=== PATIENT | female | born 1960 | race Caucasian/White ===

== ENCOUNTER 2023-03-17 13:21 | Outpatient (CLI) | payer OTHER, SELFPAY ==
--- NOTE | ~2023-03-17 | XR_ITS ---
XR knee LT 3V 03/17/2023 13:51 Indication: Left knee pain Procedure: 3 views left knee Comparison: No prior studies for comparison. Findings: There is mild osteoarthritis of the left knee. No fracture, subluxation or dislocation. No significant joint effusion. No foreign bodies. Impression: 1: Mild osteoarthritis of the left knee. Reviewed, dictated and finalized at location L. Impression: 1: Mild osteoarthritis of the left knee.
[2023-03-17 18:39] LABS: Hematocrit 42.1 % (37.0-47.0); Hemoglobin 12.6 g/dL (12.0-15.0); Mean Corpuscular HGB Conc 29.9 g/dl (32-36); Mean Corpuscular Hemoglobin 27.6 pg (26-34); Mean Corpuscular Volume 92.1 fl (80-100); Mean Platelet Volume 10.4 fl (7.4-10.4); Platelet Count Result 361 k/mm3 (150-375); Red Blood Count 4.57 M/mm3 (4.2-5.4); Red Cell Distribution Width 15.6 % (11.5-14.5)
[2023-03-17 18:43] LABS: Alanine Aminotransferase 25 U/L (6-35); Albumin Level 4.5 g/dL (3.5-5.1); Alkaline Phosphatase 68 U/L (38-126); Anion Gap 7 mmol/L (8-16); Aspartate Amino Transferase 60 U/L (14-36); Bilirubin,Total 0.5 mg/dL (0.2-1.3); Blood Urea Nitrogen 23 mg/dL (7-17); Carbon Dioxide 33 mmol/L (22-30); Chloride 99 mmol/L (98-107); Cholesterol 218 mg/dL (0-200); Estimated Glomerular Filt Rate 46; Glucose 82 mg/dL (65-110); HDL Direct 63 mg/dL; Potassium 3.8 mmol/L (3.4-5.0); Sodium 139 mmol/L (137-145); Triglycerides 117 mg/dL (<150)
[2023-03-17 18:54] LABS: LDL Cholesterol Direct 109 mg/dL
[2023-03-17 20:14] LABS: Hepatitis C Virus Antibody Negative (Negative)
== END 2023-03-17 13:22 | disposition home or self-care (01) ==
PROVIDERS: PCP Nurse Practitioner Adult Health; Visit Provider Nurse Practitioner Adult Health
DX: M17.12 Unilateral primary osteoarthritis, left knee (principal); Z13.9 Encounter for screening, unspecified
CPT/HCPCS: 36415; 73562; 80053; 80061; 84443; 85027; 86803

== ENCOUNTER 2023-08-05 14:58 | Outpatient (CLI) | payer OTHER, SELFPAY ==
--- NOTE | ~2023-08-05 | MM_ITS ---
EXAMINATION: MM screening laura BI w dale HISTORY: Screening mammogram TECHNIQUE: Craniocaudal and mediolateral oblique 3-D tomosynthesis images were obtained and synthetic 2-D images were generated. CAD analysis was submitted and interpreted. COMPARISON: No prior mammogram is available for comparison at this institution. BREAST PARENCHYMAL COMPOSITION: There are scattered areas of fibroglandular density. FINDINGS: RIGHT BREAST: A mass is present in the middle third of the lower, inner right breast, 7 cm from the n ipple. LEFT BREAST: No suspicious mass, calcification, or architectural distortion are identified to suggest malignancy. IMPRESSION: 1. Right breast mass which may represent the patient's baseline however no comparison is currently av ailable. 2. Comparison with prior mammograms is necessary. BI-RADS Category 0: Incomplete: Needs comparison with prior mammograms. Reviewed, dictated and finalized at location A. CIL TYPIST IMPRESSION: 1. Right breast mass which may represent the patient's baseline however no comp arison is currently available. 2. Comparison with prior mammograms is necessary. BI-RADS Category 0: Incomplete: Needs comparison with prior mammograms.
== END 2023-08-05 14:59 | disposition home or self-care (01) ==
LOC: ANHIMG 15:00
PROVIDERS: PCP Nurse Practitioner Adult Health; Visit Provider Nurse Practitioner Adult Health
DX: Z12.31 Encounter for screening mammogram for malignant neoplasm of breast (principal); R92.8 Other abnormal and inconclusive findings on diagnostic imaging of breast
CPT/HCPCS: 77063; 77067

== ENCOUNTER 2024-03-22 08:15 | Outpatient (CLI) | payer OTHER, SELFPAY ==
[2024-03-22 19:43] LABS: Alanine Aminotransferase 22 U/L (6-35); Albumin Level 4.1 g/dL (3.5-5.1); Alkaline Phosphatase 75 U/L (38-126); Anion Gap 9 mmol/L (4-12); Aspartate Amino Transferase 80 U/L (14-36); Bilirubin,Total 0.3 mg/dL (0.2-1.3); Blood Urea Nitrogen 23 mg/dL (7-17); Calcium 9.5 mg/dL (8.4-10.2); Carbon Dioxide 32 mmol/L (22-30); Chloride 98 mmol/L (98-107); Cholesterol 223 mg/dL (0-200); Estimated Glomerular Filt Rate 46; Glucose 84 mg/dL (65-110); HDL Direct 67 mg/dL; Potassium 4.5 mmol/L (3.4-5.0); Sodium 139 mmol/L (137-145); Triglycerides 100 mg/dL (<150)
[2024-03-22 19:54] LABS: LDL Cholesterol Direct 117 mg/dL
[2024-03-22 20:04] LABS: Vitamin D 25 Hydroxy 78.9 ng/mL
[2024-03-22 20:09] LABS: Hematocrit 44.7 % (37.0-47.0); Hemoglobin 13.5 g/dL (12.0-15.0); Mean Corpuscular HGB Conc 30.2 g/dl (32-36); Mean Corpuscular Hemoglobin 28.8 pg (26-34); Mean Corpuscular Volume 95.3 fl (80-100); Mean Platelet Volume 10.4 fl (7.4-10.4); Platelet Count Result 327 k/mm3 (150-375); Red Blood Count 4.69 M/mm3 (4.2-5.4); Red Cell Distribution Width 15.1 % (11.5-14.5); White Blood Count 6.6 K/mm3 (4.5-10.0)
== END 2024-03-22 08:16 | disposition home or self-care (01) ==
LOC: ANHBWCLAB 08:16
PROVIDERS: PCP Nurse Practitioner Adult Health; Visit Provider Nurse Practitioner Adult Health
DX: E03.9 Hypothyroidism, unspecified (principal); E55.9 Vitamin D deficiency, unspecified; F41.9 Anxiety disorder, unspecified; Z13.9 Encounter for screening, unspecified
CPT/HCPCS: 36415; 80053; 80061; 82306; 84443; 85027

== ENCOUNTER 2024-09-28 07:21 | Outpatient (CLI) | payer OTHER, SELFPAY ==
--- OUTSIDE RECORDS SUMMARY | 2024-09-28 07:25 | XMS_ITS | Encounter Summary ---
Author Organization [facility] Address [address] [place] [address] Care Team Providers Care Tableau Report Developer Name Role Phone Meera Gilliland TYRONE Primary Care Provider [phone] Encounter Details Date Type Department Care Team (Latest Contact Info) Description 06/24/2008 Outpatient Historical HIS [facility] THU Aguirre, MD Osvaldo Other Screening Mammogram Social History Tobacco Use Types Packs/Day Years Used Date Smoking Tobacco: Never Assessed Comments Unknown Sex and Gender Information Value Date Recorded Sex Assigned at Female 07/26/2024 7:58 AM COVER OPERATOR Legal Sex Female 5:08 AM COVER OPERATOR Gender Identity Female 07/26/2024 7:58 AM COVER OPERATOR Sexual Orientation Straight 07/26/2024 7: 58 AM COVER OPERATOR documented as of this encounter Plan of Treatment Not on file documented as of this encounter Procedures Procedure Name Priority Date/Time Associated Diagnosis Comments MAMMO SCREEN BILAT W OR WO CAD Routine 06/24/2008 10:15 AM COVER OPERATOR documented in this encounter Results * MAMMO DIGITAL SCREEN BILAT (06/24/2008 10:15 AM COVER OPERATOR) Anatomical Region Laterality Modality Breast Bilateral Other 06/24/2008 10:1 5 AM COVER OPERATOR Narrative 06/27/2008 10:52 AM COVER OPERATOR [address] [address] Admit Date: 06/24/2008 FRED MAY Sex: F Admit Prov: OSVALDO AGUIRRE Date: 1960 Primary Care Prov: OSVALDO AGUIRRE CMRN: [id number] Room: JAYCOB N: [id number] IMAGING SERVICES Ordering Prov: OSVALDO AGUIRRE Accession Number: [id number] Interpretation BILATERAL SCREENING DIGITAL MAMMOGRAMS WITH COMPUTER ASSISTED DIAGNOSIS, 06/24/2008 Clinical History: Screening mammogram. Findings: Bilateral digital mammogram using CAD technology is compared with previous mammogram of 04/22/2007. Both breasts demonstrate a moderate degree of heterogeneous fibroglandular tissue density. There has been marked regression and near resolution of the cysts previously present in the inferomedial aspect of the right breast, with one tiny residual cyst remaining. There is no evidence of malignant breast mass or radiographic signs of malignancy in either breast. Impression: Interval regression of small cysts from the inferomedial aspect of the right breast, with a solitary tiny cyst remaining. No evidence of malignancy or change otherwise. BI-RADS Category: 2 Assessment BIRADS: 2-Benign finding Recommendation: Normal interval follow-up Dictated by: CULLEN OBRIEN Electronically signed by: CULLEN OBRIEN 06/27/2008 10:52 Transcribed: 06/27/2008 07:54 DKT Procedure Note Cullen Obrien MD - 06/27/2008 [facility] [place] [address], [place] [address] Admit Date: 06/24/2008 FRED MAY Sex: F Admit Prov: OSVALDO AGUIRRE Date: 1960 Primary Care Prov: OSVALDO AGUIRRE CMRN: [id number] Room: JAYCOB N: [id number] IMAGING SERVICES Ordering Prov: OSVALDO AGUIRRE Interpretation BILATERAL SCREENING DIGITAL MAMMOGRAMS WITH COMPUTER ASSISTEDDIAGNOSIS, 06/24/2008 Clinical History: Screening mammogram. Findings: Bilateral digital mammogram using CAD technology iscompared with previous mammogram of 04/22/2007. Both breasts demonstrate a moderatedegree of heterogeneous fibroglandular tissue density. There has beenmarked regression and near resolution of the cysts previously present inthe inferomedial aspect of the right breast, with one tiny residualcyst remaining. There is no evidence of malignant breast mass orradiographic signs of malignancy in either breast. Impression: Interval regression of small cysts from the inferomedial aspect ofthe right breast, with a solitary tiny cyst remaining. No evidence of malignancy or change otherwise. BI-RADS Category: 2 Assessment BIRADS: 2-Benign finding Recommendation: Normal interval follow-up Dictated by: CULLEN OBRIEN Electronically signed by: CULLEN OBRIEN 06/27/2008 10:52 Transcribed: 06/27/2008 07:54 DKT us Osvaldo Aguirre MD MAMMO ORDERABLES Final Resul t documented in this encounter Visit Diagnoses Diagnosis Other screening mammogram documented in this encounter Care Teams Tableau Report Developer Relationship Specialty Start Date End Date Meera Gilliland ANP [address] [address] PCP - General Nurse Practitioner Adult Health 03/03/19 documented as of this encounter
--- OUTSIDE RECORDS SUMMARY | 2024-09-28 07:25 | XMS_ITS | Referral Summary ---
Author Organization [facility] Address [address] [place] [address] Care Team Providers Care Synthetic Gem Press Operator Name Role Phone Meera Gilliland NP Primary Care Provider [phone] Allergies Active Allergy Reactions Criticality Noted Date Comments Clindamycin Doxycycline Erythromycin Hives Medium 04/07/2023 Penicillins Medications venlafaxine 75 mg tablet extended release 24hr 24 hr tablet Take 1 tablet (75 mg total) by mouth daily Active buPROPion XL (WELLBUTRIN XL) 300 mg 24 hr tablet Take 1 tablet (300 mg total) by mouth daily Active cholecalciferol (VITAMIN D-3) 2000 unit capsule 1 capsule (2,000 Units total) Active cyanocobalamin, vitamin B-12, (VITAMIN B-12 ORAL) Take by mouth Active levothyroxine (SYNTHROID) 137 mcg tablet Take 1 tablet (137 mcg total) by mouth corporate relations manager before breakfast Active B lcop-N-bbcvv njio-jcnl15-ugj 30-400-80 unit-mcg-mg tablet Take by mouth Active Active Problems Problem Noted Date Diagnosed Date Encounter for screening colonoscopy 10/31/2020 Overview (10/31/2020): Added automatically from request for surgery [id number] Injury of finger 02/09/2013 Social History Tobacco Use Types Packs/Day Years Used Date Smoking Tobacco: Never Tobacco Cessation:Counseling Given: Not Answered Personal Safety Answer Date Recorded Getting School Help Needed Not on file 02/28 /2024 Comments Unknown Sex and Gender Information Value Date Recorded Sex Assigned at Not on file Legal Sex Female 12:05 PM BUTTON PUNCHER Gender Identity Female 07/23/2021 9:25 AM BUTTON PUNCHER Sexual Orientation Straight 09/01/2020 8: 10 PM BUTTON PUNCHER Last Filed Vital Signs Vital Sign Reading Time Taken Comments Blood Pressure 129/80 12/21/2020 8:30 AM CDT Pulse 77 12/21/2020 8:30 AM CDT Temperature 36.9 C (98.5 F) 12/21/2020 8:30 AM CDT Respiratory Rate 20 12/21/2020 8:30 AM CDT Oxygen Saturation 99% 12/21/2020 8:30 AM CDT Inhaled Oxygen Concentration - - Weight 99.8 kg (220 lb) 05/19/2023 8:04 AM BUTTON PUNCHER Height 172.7 cm (5' 8 ) 05/19/2023 8:04 AM BUTTON PUNCHER Body Mass Index 33.45 05/19/2023 8:04 AM BUTTON PUNCHER Plan of Treatment Not on file Procedures Procedure Name Priority Date/Time Associated Diagnosis Comments COLONOSCOPY 12/21/2020 7:26 AM CDT from Last 3 Months or Most Recently Relevant to Health Maintenance Results * COLONOSCOPY (12/21/2020 7:26 AM CDT) Anatomical Region Laterality Modality Other Narrative Procedure Note Sarthak Orr MD - 12/21/2020 7:26 AM CDT [facility] Patient Name: Nina May Procedure Date: 12/21/2020 7:26 AM Date of : 1960 Admit Type: Outpatient Age: 60 Gender: Female Attending MD: Sarthak Orr M.D. Room: [facility] ENDOSCOPY ROOM 2 Note Status: Finalized Patient Profile: Refer to note in patient chart for documentation of history and physical. Procedure: Colonoscopy Indications: Screening for colorectal malignant neoplasm, Last colonoscopy: 2010 Referring MD: TYRONE Prajapati Providers: Sarthak Orr M.D. Impression: - Hemorrhoids found on perianal exam. - Diverticulosis in the sigmoid colon, in the descending colon and in the transverse colon. - The examination was otherwise normal. - No specimens collected. Recommendation: - Discharge patient to home. - Resume previous diet. - Continue present medications. - Repeat colonoscopy in 10 years for screening purposes. - Return to primary care physician as previously scheduled. Medicines: Propofol per Anesthesia Complications: No immediate complications. Estimated Blood Loss: Estimated blood loss: none. Procedure: Pre-Anesthesia Assessment: - This assessment was completed [Time ofAssessment] prior to the administration of sedation. The benefits, risks and alternatives of theprocedure and sedation were discussed and informed consentwas obtained. All questions were answered. Please referto the signed informed consent document in the medical record. The scope was passed under direct vision.The Colonoscope [id number] was introducedthrough the anus and advanced to the the cecum, identifiedby appendiceal orifice and ileocecal valve. The bowel preparation used was Miralax via single dose instruction. The bowel preparation used wasbisacodyl tablets via single dose instruction. Thecolonoscopy was performed without difficulty. The patient tolerated the procedure well. The quality of thebowel preparation was excellent. Findings: Hemorrhoids were found on perianal exam. Multiple small and large-mouthed diverticula were found in thesigmoid colon, descending colon and transverse colon. The exam was otherwise without abnormality. Electronically signed by Sarthak Orr M.D. Sarthak Orr M.D. 12/21/2020 7:52:05 AM Number of Addenda: 0 Note Initiated On: 12/21/2020 7:26 AM Procedure Code(s): --- Professional --- G0121, Colorectal cancer screening; colonoscopy on individual not meeting criteria for high risk Diagnosis Code(s): --- Professional --- K57.30, Diverticulosis of large intestine without perforation orabscess without bleeding K64.9, Unspecified hemorrhoids Z12.11, Encounter for screening for malignant neoplasm of colon CPT copyright 2019 [employer]. All rights reserved. The codes documented in this report are preliminary and upon print line inspector reviewmay be revised to meet current compliance requirements. Recognized by the [employer] for promoting quality in endoscopy Sarthak Orr MD ENDOSCOPY PROCEDURES Final Re sult from Last 3 Months or Most Recently Relevant to Health Maintenance Insurance [place] [address] [employer]ATE[employer] Advance Directives For more information, please contact: [phone] * Full Code (Latest Code Status on File) Date Activated Date Inactivated Comments 12/21/2020 6:57 AM 12/21/2020 12:41 PM * Full Code Date Activated Date Inactivated Comments 12/21/2020 6:57 AM 12/21/2020 6:57 AM Care Teams Synthetic Gem Press Operator Relationship Specialty Start Date End Date Meera Gilliland NP PCP - General 12/21/20
--- OUTSIDE RECORDS SUMMARY | 2024-09-28 07:25 | XMS_ITS | Clinical Summary ---
Author Organization [facility] Facility Address [address] [place] [address] Care Team Providers Care Teletypewriter Installer Name Role Phone Meera Gilliland TYRONE Primary Care Provider Allergies Active Allergy Reactions Criticality Noted Date Comments Erythromycin Other (see comments) 11/10/2017 Other reaction(s): Unknown Penicillins Hives,Other (see comments) High 08/23/2017 Medications buPROPion XL (WELLBUTRIN XL) 300 MG 24 hr tablet Take 1 tablet by mouth 1 (one) time each day Active cholecalciferol (VITAMIN D-3) 25 MCG (1000 UT) capsule Take 1 capsule by mouth 2 (two) times a day Active levothyroxine (SYNTHROID, LEVOTHROID) 100 MCG tablet 03/17/2021 Active venlafaxine XR (EFFEXOR-XR) 75 MG 24 hr capsule Take 1 capsule by mouth 1 (one) time each day Active Active Problems Problem Noted Date Diagnosed Date Benign essential hypertension 05/01/2021 Chronic kidney disease stage 3B 05/01/2021 Hypothyroidism 05/01/2021 Vitamin D deficiency 05/01/2021 Immunizations Name Administration Dates Next Due Influenza, Quadrivalent, With Preservative 03/25 Tdap 06/22/2012 Family History Medical History Relation Comments Dementia Father Stroke Mother Relation Status Comments Father Mother Social History Tobacco Use Types Packs/Day Years Used Date Smoking Tobacco: Never Alcohol Use Standard Drinks/Week Comments Yes 0 (1 standard drink = 0.6 oz pure alcohol) Alcoholic Drinks/day: Occasional social drink Comments Unknown Sex and Gender Information Value Date Recorded Sex Assigned at Not on file Legal Sex Female 2:53 PM EDT Gender Identity Not on file Sexual Orientation Not on file Last Filed Vital Signs Vital Sign Reading Time Taken Comments Blood Pressure 120/75 01/06/2022 3:19 PM CDT Pulse 110 01/06/2022 3:19 PM CDT Temperature 35.9 C (96.6 F) 01/06/2022 3:19 PM CDT Respiratory Rate 17 01/06/2022 3:19 PM CDT Oxygen Saturation 97% 01/06/2022 3:19 PM CDT Inhaled Oxygen Concentration - - Weight 100 kg (221 lb) 01/06/2022 3:19 PM CDT Height 175.3 cm (5' 9 ) 01/06/2022 3:19 PM CDT Body Mass Index 32.64 01/06/2022 3:19 PM CDT Plan of Treatment Health Maintenance Due Date Last Done Comments Breast Cancer Screening 1960 Pneumococcal Vaccine: Pediatrics (0 to 5 Years) and At-Risk Patients (6 to 64 Years) (1 of 2 - PCV) 11/03/1967 Colorectal Cancer Screening: Annual FOBT 2010 Colorectal Cancer Screening: Sigmoidoscopy 2010 Influenza Vaccine (Season Ended) 2025 03/22/2021, 03/25/2018 Colorectal Cancer Screening: Colonoscopy 12/21/2030 12/21/2020 Hepatitis B Vaccine Aged Out No longe r eligible based on patient's age to complete this topic Insurance [facility] ([id number]) Care Teams Teletypewriter Installer Relationship Specialty Start Date End Date Meera Gilliland ANP [address] [address] PCP - General Nurse Practitioner 05/01/21
--- OUTSIDE RECORDS SUMMARY | 2024-09-28 07:25 | XMS_ITS | Clinical Summary ---
Author Organization [facility] Address [address] [place] [address] Care Team Providers Care Predictive Maintenance Specialist Name Role Phone Meera Gilliland NP Primary Care Provider [phone] Allergies Active Allergy Reactions Criticality Noted Date [...] 1 tablet (137 mcg total) by mouth clinical biochemist before breakfast Active B mqaz-G-lgnyk liyd-pzjn90-evk 30-400-80 unit-mcg-mg tablet Take by mouth Active Active Problems Problem Noted Date Diagnosed Date Encounter for screening colonoscopy 10/31/2020 Overview (10/31/2020): Added automatically from request for surgery [id number] Injury of finger 02/09/2013 Surgical History Surgery Date Site/Laterality Comments COLONOSCOPY 06/22/2010 - 06/21/2011 FINGER SURGERY Right Repair after getting finger caught in lawnmower Medical History Medical History Date Comments Hypothyroidism Social History Tobacco Use Types Packs/Day Years Used Date Smoking Tobacco: Never Tobacco Cessation:Counseling Given: Not Answered Personal Safety Answer Date Recorded Getting School Help Needed Not on file 08/19 Comments Unknown Sex and Gender Information Value Date Recorded Sex Assigned at Not on file Legal Sex Female 12:05 PM YOUTH MANAGER Gender Identity Female 07/23/2021 9:25 AM YOUTH MANAGER Sexual Orientation Straight 09/01/2020 8: 10 PM YOUTH MANAGER Obstetrics History Last Filed Vital Signs Vital Sign Reading Time Taken Comments Blood Pressure 129/80 12/21/2020 8:30 AM CDT Pulse 77 12/21/2020 8:30 AM CDT Temperature 36.9 C (98.5 F) 12/21/2020 8:30 AM CDT Respiratory Rate 20 12/21/2020 8:30 AM CDT Oxygen Saturation 99% 12/21/2020 8:30 AM CDT Inhaled Oxygen Concentration - - Weight 99.8 kg (220 lb) 05/19/2023 8:04 AM YOUTH MANAGER Height 172.7 cm (5' 8 ) 05/19/2023 8:04 AM YOUTH MANAGER Body Mass Index 33.45 05/19/2023 8:04 AM YOUTH MANAGER Plan of Treatment Health Maintenance Due Date Last Done Comments Breast Cancer Screening-Mammogram 1960 Cervical Cancer Screening 1960 Depression Screening 1960 Hepatitis C Screening 1960 Hepatitis B Screening 11/03/1979 Regular Well Visit/Exam 18-64 11/03/1979 Pneumococcal vaccine <65 (1 of 2 - PCV) 1980 Influenza Vaccine (#1) 2024 3, 03/22/2021, 03/25/2018 Colon Cancer Screening-Colonoscopy 12/21/20302020 DTaP/Tdap/Td Vaccine (4 - Td or Tdap) 01/15/2033 01/15/2023, 07/14/2012, 06/22/2012 Zoster Vaccine Completed 09/09/2019, 01/14/2019 Procedures Procedure Name Priority Date/Time Associated Diagnosis Comments COLONOSCOPY 12/21/2020 7:26 AM CDT from Last 3 Months or Most Recently Relevant to Health Maintenance Results * COLONOSCOPY (12/21/2020 7:26 AM CDT) Anatomical Region Laterality Modality Other Narrative Procedure Note Sarthak Orr MD - 12/21/2020 7:26 AM CDT [facility] Patient Name: Nina May Procedure Date: 12/21/2020 7:26 AM Date of : 1960 Admit Type: Outpatient Age: 60 Gender: Female Attending MD: Sarthak Orr M.D. Room: [facility] ENDOSCOPY ROOM 2 Note Status: Finalized Patient [...] scope was passed under direct vision.The Colonoscope CF-[id number] was introducedthrough the anus and advanced to [...] malignant neoplasm of colon CPT copyright 2019 [employer]. All rights reserved. The codes documented in this report are preliminary and upon community youth secretary reviewmay be revised to meet current compliance requirements. Recognized by the [employer] for promoting quality in endoscopy us Sarthak Orr MD ENDOSCOPY PROCEDURES Final Re sult from Last 3 Months or Most Recently Relevant to Health Maintenance Insurance Advance Directives For more information, please contact: [phone] * Full Code (Latest Code Status on File) Date Activated Date Inactivated Comments 12/21/2020 6:57 AM 12/21/2020 12:41 PM * Full Code Date Activated Date Inactivated Comments 12/21/2020 6:57 AM 12/21/2020 6:57 AM Care Teams Predictive Maintenance Specialist Relationship Specialty Start Date End Date Meera Gilliland NP PCP - General 12/21/20
--- OUTSIDE RECORDS SUMMARY | 2024-09-28 07:25 | XMS_ITS | Encounter Summary ---
Author Organization [facility] Address [address] [place] [address] Care Team Providers Care Veterinarian Laboratory Animal Care Name Role Phone Meera Gilliland Primary Care Provider [phone] Encounter Details Date Type Department Care Team (Latest Contact Info) Description 05/25/2007 Outpatient Historical HIS [facility] Devorah Truong MD Lump or Mass in Breast Social History Tobacco Use Types Packs/Day Years Used Date Smoking Tobacco: Never Assessed Comments Unknown Sex and Gender Information Value Date Recorded Sex Assigned at Female 07/26/2024 7:58 AM HOSPITAL AIDE Legal Sex Female 5:08 AM HOSPITAL AIDE Gender Identity Female 07/26/2024 7:58 AM HOSPITAL AIDE Sexual Orientation Straight 07/26/2024 7: 58 AM HOSPITAL AIDE documented as of this encounter Plan of Treatment Not on file documented as of this encounter Visit Diagnoses Diagnosis Lump or mass in breast documented in this encounter Care Teams Veterinarian Laboratory Animal Care Relationship Specialty Start Date End Date Meera Gilliland ANP [address] [id number] PCP - General Nurse Practitioner Adult Health 03/03/19 documented as of this encounter
--- OUTSIDE RECORDS SUMMARY | 2024-09-28 07:25 | XMS_ITS | Clinical Summary ---
Author Organization [facility] [employer] Address [address] [place] [address] Care Team Providers Care Farmworker Rice Name Role Phone Nallelymelanie Meera NICOL Primary Care Provider + Source Comments [facility] [employer],non-owned Affiliates and Associated Physician Practices is amultiple site organization consisting of ambulatory clinics and hospital sitesin [place], [place], [place] and [place]. This disclosure is being madepursuant to the Care Everywhere program and may not contain all information available regarding this patient. Last updated 18.[facility] [employer] Allergies Active Allergy Reactions Criticality Noted Date Comments Erythromycin Unknown 11/10/2017 Penicillins Urticaria Medium 08/23/2017 Medications * Be aware that medications may not be up to date on this document. Alwaysverify current medications with the patient. Medication Sig Dispensed Refills Start Date End Date Status LEVOTHYROXINE SODIUM PO Active BuPROPion HCl (WELLBUTRIN PO) Active Venlafaxine HCl (EFFEXOR XR PO) Active nystatin (MYCOSTATIN) 790471 UNIT/GM cream Apply to affected area 2 times daily 30 g 1 11/10/2017 Active miconazole (LOTRIMIN AF) 2 % powderIndications:Cu taneous Candidiasis Apply to affected area 2 times daily Reasons: Skin Infection due to Jacquie Yeast 1 bottles 11/20/2017 Active predniSONE (DELTASONE) 20 MG tabletIndications:co ntact dermatitis Three tabs once daily days #1-7. Two tabs once daily days # 8-14. One tab once daily days #15-21. Reasons: contact dermatitis 42 tablet 11/20/2017 Active hydrOXYzine hcl (ATARAX) 25 MG tabletIndications:Po jr sudha,Jacquie infection of flexural skin Take 1 tablet by mouth 4 times daily as needed for Itching 30 tablet 11/20/2017 Active Social History Tobacco Use Types Packs/Day Years Used Date Smoking Tobacco: Never Smokeless Tobacco: Never Sex and Gender Information Value Date Recorded Sex Assigned at Not on file Gender Identity Not on file Sexual Orientation Not on file Last Filed Vital Signs Vital Sign Reading Time Taken Comments Blood Pressure 120/64 11/10/2017 5:12 PM CDT Pulse 76 11/20/2017 7:43 AM CDT Temperature 36.9 C (98.4 F) 11/20/2017 7:43 AM CDT Respiratory Rate 20 11/20/2017 7:43 AM CDT Oxygen Saturation 96% 08/23/2017 2:41 PM ELECTRICAL INSTRUMENT TECHNICIAN Inhaled Oxygen Concentration - - Weight 99.8 kg (220 lb) 11/10/2017 5:12 PM CDT Height 175.3 cm (5' 9 ) 11/10/2017 5:12 PM CDT Body Mass Index 32.49 11/10/2017 5:12 PM CDT Plan of Treatment Health Maintenance Due Date Last Done Comments COLOGUARD (AGES 45-75) - COL ON CA SCREENING 1961 COLON MONITORING 1961 COLONOSCOPY - COLON CA SCREENING 1961 CT COLONOGRAPHY - COLON CA SCREENING 1961 Colorectal Cancer Screening 1961 FIT - COLON CA SCREENING 1961 FLEX SIG - COLON CA SCREENING 1961 LIPID TESTING 1960 MAMMOGRAM 1961 HIV SCREENING 1976 HEPATITIS C SCREENING 10/29/1979 DTAP/TDAP/TD VACCINES (1 - Tdap) 1980 PNEUMOCOCCAL VACCINE 50+ (1 of 1 - PCV) 11/03/2011 ZOSTER VACCINE (1 of 2) 11/03/2011 SCREENING FOR DIABETES 08/23/2017 COVID-19 VACCINE ( - 2023-2 5 season) 2024 DEPRESSION SCREENING 06/22/2024 INFLUENZA VACCINE (Season Ended) 2025 03/25/20 18 Respiratory Syncytial Virus (RSV) Vaccine Pt: or over 60 yrs (1 - 1-dose 75+ series) 2036 HEPATITIS B VACCINE Aged Out No longe r eligible based on patient's age to complete this topic HIB VACCINE Aged Out No longer eligi ble based on patient's age to complete this topic HPV VACCINE Aged Out No longer eligi ble based on patient's age to complete this topic MENINGOCOCCAL (Group B) VACC INE SHARED DECISION-MAKING Aged Out No longer eligibl e based on patient's age to complete this topic MENINGOCOCCAL GROUPS A/C/Y/W VACCINE Aged Out No longer eligible b ased on patient's age to complete this topic Care Teams Farmworker Rice Relationship Specialty Start Date End Date Meera Gilliland APRN-WHEELCHAIR VAN OPERATOR FIRST RESPONDER [address] [address] PCP - General Nurse Practitioner 08/23/17
--- OUTSIDE RECORDS SUMMARY | 2024-09-28 07:25 | XMS_ITS | Clinical Summary ---
Author Organization [facility] [employer] [place] Address [address] [place] [place] [address] Care Team Providers Care Fire Management Officer Name Role Phone Meera Gilliland Primary Care Provider [phone] Allergies Active Allergy Reactions Criticality Noted Date Comments Erythromycin Hives High 11/10/2017 Penicillins Hives High 08/23/2017 Medications vitamin B complex Tablet Sustained Release Take 1 Tablet by mouth daily. Active cholecalciferol , vitamin D3, 1,000 unit Take by mouth. Active black cohosh root (MENOPAUSE SUPPORT ORAL) Take by mouth. Active levothyroxine 125 mcg tablet Take 125 mcg by mouth daily in the morning. Active cyanocobalamin, vitamin B-12, 2,000 mcg Tablet Take by mouth. Active nystatin (NYSTOP) 100,000 unit/gram powder 04/15/2023 Active buPROPion HCL (WELLBUTRIN XL) 300 mg Extended Release 24 hour tablet Take 1 Tablet (300 mg) by mouth daily in the morning. 90 Tablet 3 08/18/2024 Active venlafaxine (EFFEXOR XR) 150 mg Extended Release 24 hour capsule Take 1 Capsule (150 mg) by mouth daily. 90 Capsule 3 08/18/2024 Active Active Problems Problem Noted Date Diagnosed Date Stage 3a chronic kidney disease 01/15/2023 Hypothyroidism 05/01/2021 Depression Encounters Date Type Department Care Team Description 08/29/2024 External Device Data STL ABSTRACTION Provider, Abstract 08/23/2024 External Device Data STL ABSTRACTION Provider, Abstract 08/19/2024 Results Follow-Up [facility] [place] [address] [place] [address] Rhona Jha DNP LIPID PANEL, COMPREHENSIVE METABOLIC PANEL, CBC WITH DIFFERENTIAL, TSH 08/18/2024 10:30 AM CUTTING MACHINE OPERATOR Office Visit [facility] [employer] [place] [address] [place] [address] Rhona Jha DNP Screening for condition (Primary Dx) 08/15/2024 Refill [facility] [employer] [facility] [address] [place] [address] Rhona Jha DNP 08/10/2024 External Device Data STL ABSTRACTION Provider, Abstract 07/14/2024 External Device Data STL ABSTRACTION Provider, Abstract 07/05/2024 External Device Data STL ABSTRACTION Provider, Abstract from Last 3 Months Immunizations Immunization Administration Dates Next Due (ADACEL/BOOSTRIX)(10 YR UP) TDAP VACCINE, 0.5ML, IM 01/15/2023,06/22/2012 (SHINGRIX)(50 YRS UP) ZOSTER VACCINE RECOMBINANT, 0.5 ML, IM 09/09/2019,01/14/2019 INFLUENZA VACCINE QUADRIVALENT 6 MOS UP IM 03/25 INFLUENZA VACCINE QUADRIVALENT 6 MOS UP PF IM ,03/22/2021 INFLUENZA VACCINE TRIVALENT SPLIT VIRUS, (6 MOS UP), 0.5ML (PF), IM 03/23/2024 Family History Medical History Relation Name Comments Cancer Brother No Known Problems Daughter 1 No Known Problems Daughter 2 Dementia Father Unknown Maternal Grandfather Unknown Maternal Grandmother Blood Disorder Mother Stroke Mother Unknown Paternal Grandfather Unknown Paternal Grandmother No Known Problems Sister Relation Name Status Comments Brother Alive Daughter 1 Alive Daughter 2 Alive Father Alive Maternal Grandfather Maternal Grandmother Mother Paternal Grandfather Paternal Grandmother Sister Alive Social History Tobacco Use Types Packs/Day Years Used Date Smoking Tobacco: Never Smokeless Tobacco: Never Alcohol Use Standard Drinks/Week Comments Yes 0 (1 standard drink = 0.6 oz pur e alcohol) Social Comments No Sex and Gender Information Value Date Recorded Sex Assigned at Female 07/26/2024 7:58 AM CUTTING MACHINE OPERATOR Legal Sex Female 5:08 AM CUTTING MACHINE OPERATOR Gender Identity Female 07/26/2024 7:58 AM CUTTING MACHINE OPERATOR Sexual Orientation Straight 07/26/2024 7: 58 AM CUTTING MACHINE OPERATOR Last Filed Vital Signs Vital Sign Reading Time Taken Comments Blood Pressure 130/80 08/18/2024 10:24 AM CUTTING MACHINE OPERATOR Pulse 101 08/18/2024 10:24 AM CUTTING MACHINE OPERATOR Temperature 36.9 C (98.4 F) 08/18/2024 10:24 AM CUTTING MACHINE OPERATOR Respiratory Rate 16 08/18/2024 10:24 AM CUTTING MACHINE OPERATOR Oxygen Saturation 97% 08/18/2024 10:24 AM CUTTING MACHINE OPERATOR Inhaled Oxygen Concentration - - Weight 95.3 kg (210 lb) 08/18/2024 10:24 AM CUTTING MACHINE OPERATOR Height 172.7 cm (5' 8 ) 08/18/2024 10:24 AM CUTTING MACHINE OPERATOR Body Mass Index 31.93 08/18/2024 10:24 AM CUTTING MACHINE OPERATOR Plan of Treatment Health Maintenance Due Date Last Done Comments Pre-Diabetes and Diabetes Screening 1960 HPV/Cotest (21-29) 1982 PAP SMEAR 1982 HPV/Cotest (30-65) 11/03/1991 FIT-DNA Q 3 years 2006 FIT/FOBT Q 1 year 2006 Flex Sig/CT Colonography Q 5 years 2006 BREAST CANCER SCREENING 06/24/2009 06/24/2008 RSV VACCINE (60+ or ) (1 - Risk 60-74 years 1-dose series) 2021 CERVICAL CANCER SCREENING 11/29/2023 PAP SMEAR 11/29/2023 11/28/2020 (Prev iously completed), 06/22/2016 COLORECTAL SCREENING 12/21/2030 12/21/2020, 12/21/2020, 12/21/2020, Additional history exists Colorectal Cancer Screening 12/21/2030 DTAP/TDAP/TD VACCINES (3 - T d or Tdap) 01/15/2033 01/15/2023, 06/22/2012 ZOSTER VACCINE Completed 09/09/2019, 01/14/2019 INFLUENZA VACCINE Completed 03/23/2024, , 03/22/2021, Additional history exists Procedures Procedure Name Priority Date/Time Associated Diagnosis Comments CBC WITH DIFFERENTIAL Routine 08/18/2024 10:53 AM CUTTING MACHINE OPERATOR Screening for condition COMPREHENSIVE METABOLIC PANEL Routine 08/18/2024 10:53 AM CUTTING MACHINE OPERATOR Screening for condition LIPID PANEL Routine 08/18/2024 10:53 AM CUTTING MACHINE OPERATOR Screening for condition TSH Routine 08/18/2024 10:53 AM CUTTING MACHINE OPERATOR Screening for condition COLONOSCOPY REPORT Routine 12/21/2020 MAMMO SCREEN BILAT W OR WO CAD Routine 06/24/2008 10:15 AM CUTTING MACHINE OPERATOR from Last 3 Months or Most Recently Relevant to Health Maintenance Results * CBC WITH DIFFERENTIAL (08/18/2024 10:53 AM CUTTING MACHINE OPERATOR) WBC 7.8 3.8 - 10.8 Thousand/u L [facility] RBC 4.58 3.80 - 5.10 Million/uL [facility] HEMOGLOBIN 13.1 11.7 - 15.5 g/dL [facility] HEMATOCRIT 40.0 35.0 - 45.0 % [facility] MCV 87.3 80.0 - 100.0 fL [facility] MCH 28.6 27.0 - 33.0 pg [facility] MCHC 32.8 32.0 - 36.0 g/dL [facility] Comment: For adults, a slight decrease in the calculated MCHC value (in the range of 30 to 32 g/dL) is most likely not clinically significant; however, it should be interpreted with caution in correlation with other red cell parameters and the patient's clinical condition. RDW 13.5 11.0 - 15.0 % [facility] PLATELETS 386 140 - 400 Thousand/u L [facility] MPV 10.6 7.5 - 12.5 fL [facility] NEUTROPHIL ABSOLUTE 4,922 1,500 - 7,800 cells/uL [facility] LYMPHOCYTE ABSOLUTE 2,215 850 - 3,900 cells/uL [facility] MONOCYTE ABSOLUTE 515 200 - 950 cells/uL [facility] EOSINOPHIL ABSOLUTE 117 15 - 500 cells/uL [facility] BASOPHILS ABSOLUTE 31 0 - 200 cells/uL [facility] NEUTROPHIL 63.1 % [facility] LYMPHOCYTES 28.4 % [facility] MONOCYTE 6.6 % [facility] EOSINOPHILS 1.5 % [facility] BASOPHILS 0.4 % [facility] Comment: Test Performed at: [facility] [address] [place] [address] Mohinder Melchor MD Blood 08/18/2024 10:5 3 AM CUTTING MACHINE OPERATOR 08/19/2024 5:39 AM CUTTING MACHINE OPERATOR [facility] HEMATOLOGY ORDERABLES Final Re sult Performing Organization Address City/[facility]/ZIP Co de Phone Number [facility] [phone] [facility] [address] * TSH (08/18/2024 10:53 AM CUTTING MACHINE OPERATOR) Pathologist [facility] TSH 2.37 0.40 - 4.50 mIU/L [facility] Comment: Test Performed at: [facility] [address] AmandaFidelia Melchor MD Blood 08/18/2024 10:5 3 AM CUTTING MACHINE OPERATOR 08/19/2024 5:39 AM CUTTING MACHINE OPERATOR [facility] CHEMISTRY ORDERABLES Final Res ult Performing Organization Address City/[facility]/ZIP Co de Phone Number [facility] [phone] [facility] [address] * (ABNORMAL) LIPID PANEL (08/18/2024 10:53 AM CUTTING MACHINE OPERATOR) CHOLESTEROL 202(H) <200 mg/dL [facility] HDL 60 > OR = 50 mg/dL [facility] TRIGLYCERIDE 105 <150 mg/dL [facility] LDL CALCULATED 121(H) mg/dL (calc) [facility] Comment: Reference range: <100 Desirable range <100 mg/dL for primary prevention; <70 mg/dL for patients with CHD or diabetic patients with > or = 2 CHD risk factors. LDL-C is now calculated using the Edison calculation, which is a validated novel method providing better accuracy than the Friedewald equation in the estimation of LDL-C. Joshua HERNANDEZ et al. EDIS. 2013;310(19): 7475-8176 (http://education.Memolane/faq/QTI847) CHOL/HDL RATIO 3.4 <5.0 (calc) [facility] NON-HDL CHOLESTEROL 142(H) <130 mg/dL (calc) [facility] Comment: For patients with diabetes plus 1 major ASCVD risk factor, treating to a non-HDL-C goal of <100 mg/dL (LDL-C of <70 mg/dL) is considered a therapeutic option. Test Performed at: [email or web address] [id number] [place] [address] Mohinder Melchor MD Blood 08/18/2024 10:5 3 AM CUTTING MACHINE OPERATOR 08/19/2024 5:39 AM CUTTING MACHINE OPERATOR Rhona Jha [facility] CHEMISTRY ORDERABLES Final Res ult [facility] [phone] [email or web address] [address] [place] [address] * (ABNORMAL) COMPREHENSIVE METABOLIC PANEL (08/18/2024 10:53 AM CUTTING MACHINE OPERATOR) GLUCOSE 74 65 - 99 mg/dL [facility] Comment: Fasting reference interval BUN 29(H) 7 - 25 mg/dL [facility] CREATININE 1.18(H) 0.50 - 1.05 mg/dL [facility] GFR 52(L) > OR = 60 mL/min/1.7 3m2 [facility] BUN/CREAT RATIO 25(H) 6 - 22 (calc) [facility] SODIUM 141 135 - 146 mmol/L [facility] POTASSIUM 4.4 3.5 - 5.3 mmol/L [facility] CHLORIDE 101 98 - 110 mmol/L [facility] CO2 30 20 - 32 mmol/L [facility] CALCIUM 9.9 8.6 - 10.4 mg/dL [facility] TOTAL PROTEIN 7.0 6.1 - 8.1 g/dL [facility] ALBUMIN 4.2 3.6 - 5.1 g/dL [facility] GLOBULIN 2.8 1.9 - 3.7 g/dL (calc) [facility] ALBUMIN/GLOBULIN RATIO 1.5 1.0 - 2.5 (calc) [facility] BILIRUBIN TOTAL 0.4 0.2 - 1.2 mg/dL [facility] ALKALINE PHOSPHATASE 67 37 - 153 U/L [facility] AST 25 10 - 35 U/L [facility] ALT 25 6 - 29 U/L [facility] Comment: Test Performed at: [facility] [address] [place] [address] Mohinder Melchor MD Blood 08/18/2024 10:5 3 AM CUTTING MACHINE OPERATOR 08/19/2024 5:39 AM CUTTING MACHINE OPERATOR us Rhona Jha DNP CHEMISTRY ORDERABLES Final Res ult [facility] [phone] [facility] [address] [place] [address] * COLONOSCOPY REPORT (12/21/2020) us Abstract Provider GI PROCEDURE ORDERABLES Final Result [facility] CLIA# [id number] [address] [place] [address] * MAMMO DIGITAL SCREEN BILAT (06/24/2008 10:15 AM CUTTING MACHINE OPERATOR) Anatomical Region Laterality Modality Breast Bilateral Other 06/24/2008 10:1 5 AM CUTTING MACHINE OPERATOR Narrative 06/27/2008 10:52 AM CUTTING MACHINE OPERATOR [facility] [address] [place], [place] [address] Admit Date: 06/24/2008 NINA MAY Sex: F Admit Prov: OSVALDO DONIS Date: 1960 Primary Care Prov: OSVALDO DONIS CMRN: [id number] [facility]: [id number] IMAGING SERVICES Ordering Prov: OSVALDO DONIS Accession Number: [id number] Interpretation BILATERAL SCREENING DIGITAL MAMMOGRAMS WITH COMPUTER [...] Procedure Note Cullen Obrien MD - 06/27/2008 [place] [id number] [place], [place] [address] Admit Date: 06/24/2008 NINA MAY Sex: F Admit Prov: OSVALDO DONIS Date: 1960 Primary Care Prov: OSVALDO DONIS CMRN: [id number] Room: [facility] N: [id number] IMAGING SERVICES Ordering Prov: OSVALDO DONIS Interpretation BILATERAL SCREENING DIGITAL MAMMOGRAMS WITH COMPUTER [...] OBRIEN 06/27/2008 10:52 Transcribed: 06/27/2008 07:54 DKT Osvaldo Donis MD MAMMO ORDERABLES Final Resul t from Last 3 Months or Most Recently Relevant to Health Maintenance Insurance ALLEGIANCE OPEN ACCESS ALLEGIANCE OPEN ACCESS * Guarantor: [employer] Account Type Relation to Patient Date of Phone Billing Address Corporate Employer ATTN: GEOVANNY [employer]HERFORD [address] [address] Care Teams Fire Management Officer Relationship Specialty Start Date End Date Meera Gilliland ANP [address] [address] PCP - General Nurse Practitioner Adult Health 03/03/19
--- OUTSIDE RECORDS SUMMARY | 2024-09-28 07:25 | XMS_ITS | Encounter Summary ---
Author Organization [facility] Address [address] [place] [address] Care Team Providers Care Senior Pricing Analyst Name Role Phone Meera Gilliland Primary Care Provider [phone] Encounter Details Date Type Department Care Team (Late st Contact Info) Description 04/23/2007 Outpatient Historical [facility] Devorah Krause MD Other Screening Mammogram (Primary Dx) Social History Tobacco Use Types Packs/Day Years Used Date Smoking Tobacco: Never Assessed Comments Unknown Sex and Gender Information Value Date Recorded Sex Assigned at Female 07/26/2024 7:58 AM AGENTS' RECORDS CLERK Legal Sex Female 5:08 AM AGENTS' RECORDS CLERK Gender Identity Female 07/26/2024 7:58 AM AGENTS' RECORDS CLERK Sexual Orientation Straight 07/26/2024 7: 58 AM AGENTS' RECORDS CLERK documented as of this encounter Plan of Treatment Not on file documented as of this encounter Visit Diagnoses Diagnosis Other screening mammogram- Primary documented in this encounter Care Teams Senior Pricing Analyst Relationship Specialty Start Date End Date Meera Gilliland ANP [address] [phone] PCP - General Nurse Practitioner Adult Health 03/03/19 documented as of this encounter
[2024-09-28 19:02] LABS: Hematocrit 44.1 % (37.0-47.0); Hemoglobin 13.3 g/dL (12.0-15.0); Mean Corpuscular HGB Conc 30.2 g/dl (32-36); Mean Corpuscular Volume 92.8 fl (80-100); Mean Platelet Volume 10.4 fl (7.4-10.4); Platelet Count Result 322 k/mm3 (150-375); Red Blood Count 4.75 M/mm3 (4.2-5.4); Red Cell Distribution Width 15.1 % (11.5-14.5); White Blood Count 6.2 K/mm3 (4.5-10.0)
[2024-09-28 19:45] LABS: Alanine Aminotransferase 33 U/L (6-35); Albumin Level 4.3 g/dL (3.5-5.1); Alkaline Phosphatase 79 U/L (38-126); Anion Gap 9 mmol/L (4-12); Aspartate Amino Transferase 83 U/L (14-36); Bilirubin,Total 0.4 mg/dL (0.2-1.3); Blood Urea Nitrogen 34 mg/dL (7-17); Calcium 9.5 mg/dL (8.4-10.2); Carbon Dioxide 31 mmol/L (22-30); Chloride 101 mmol/L (98-107); Cholesterol 219 mg/dL (0-200); Estimated Glomerular Filt Rate 49; Glucose 90 mg/dL (65-110); HDL Direct 62 mg/dL; Potassium 4.4 mmol/L (3.4-5.0); Sodium 141 mmol/L (137-145); Triglycerides 81 mg/dL (<150)
[2024-09-28 19:56] LABS: LDL Cholesterol Direct 119 mg/dL
[2024-09-28 21:01] LABS: Vitamin D 25 Hydroxy 67.3 ng/mL
== END 2024-09-28 07:22 | disposition home or self-care (01) ==
LOC: ANHBWCLAB 07:22
PROVIDERS: PCP Nurse Practitioner Adult Health; Visit Provider Nurse Practitioner Adult Health
DX: Z13.9 Encounter for screening, unspecified (principal); E55.9 Vitamin D deficiency, unspecified; E03.9 Hypothyroidism, unspecified
CPT/HCPCS: 36415; 80053; 80061; 82306; 84443; 85027

== ENCOUNTER 2024-11-18 15:16 | Outpatient (CLI) | payer OTHER, SELFPAY ==
--- NOTE | ~2024-11-18 | MM_ITS ---
EXAMINATION: MM screening laura BI w [facility] HISTORY: Screening TECHNIQUE: Craniocaudal and mediolateral oblique 3-D tomosynthesis images were obtained and synthetic 2-D images were generated. CAD analysis was submitted and interpreted. COMPARISON: Comparison to multiple prior studies sequentially, with oldest reviewed study dated 12/2015. BREAST PARENCHYMAL COMPOSITION: Not dense: There are scattered areas of fibroglandular density. FINDINGS: There is no evidence of suspicious mass, calcification, or architectural distortion to sugg est malignancy in either breast. There has been no suspicious interval change. IMPRESSION: 1. No mammographic evidence of malignancy. 2. Recommend routine screening mammography in one year. BI-RADS Category 1: Negative Reviewed, dictated and finalized at location A.
--- OUTSIDE RECORDS SUMMARY | 2024-11-18 15:20 | XMS_ITS | Encounter Summary ---
Author Organization [facility] Address [address] [place] [address] Care Team Providers Care Post Graduate Intern Name Role Phone Meera Gilliland Primary Care Provider [phone] Encounter Details Date Type Department Care Team (Latest Contact Info) Description 05/25/2007 Outpatient Historical HIS [facility] Devorah Truong MD Lump or Mass in Breast Social History Tobacco Use Types Packs/Day Years Used Date Smoking Tobacco: Never Assessed Comments Unknown Sex and Gender Information Value Date Recorded Sex Assigned at Female 07/26/2024 7:58 AM CROSSTIE INSPECTOR Legal Sex Female 5:08 AM CROSSTIE INSPECTOR Gender Identity Female 07/26/2024 7:58 AM CROSSTIE INSPECTOR Sexual Orientation Straight 07/26/2024 7: 58 AM CROSSTIE INSPECTOR documented as of this encounter Plan of Treatment Not on file documented as of this encounter Visit Diagnoses Diagnosis Lump or mass in breast documented in this encounter Care Teams Post Graduate Intern Relationship Specialty Start Date End Date Meera Gilliland ANP [address] [phone] PCP - General Nurse Practitioner Adult Health 03/03/19 documented as of this encounter
--- OUTSIDE RECORDS SUMMARY | 2024-11-18 15:20 | XMS_ITS | Encounter Summary ---
Author Organization [facility] Address [address] [place] [address] Care Team Providers Care Instructional Facilitator Name Role Phone Meera Gilliland TYRONE Primary Care Provider [phone] Encounter Details Date Type Department Care Team (Latest Contact Info) Description 06/24/2008 Outpatient Historical HIS [facility] THU Aguirre, MD Osvaldo Other Screening Mammogram Social History Tobacco Use Types Packs/Day Years Used Date Smoking Tobacco: Never Assessed Comments Unknown Sex and Gender Information Value Date Recorded Sex Assigned at Female 07/26/2024 7:58 AM SHEET METAL PRODUCTION WORKER Legal Sex Female 5:08 AM SHEET METAL PRODUCTION WORKER Gender Identity Female 07/26/2024 7:58 AM SHEET METAL PRODUCTION WORKER Sexual Orientation Straight 07/26/2024 7: 58 AM SHEET METAL PRODUCTION WORKER documented as of this encounter Plan of Treatment Not on file documented as of this encounter Procedures Procedure Name Priority Date/Time Associated Diagnosis Comments MAMMO SCREEN BILAT W OR WO CAD Routine 06/24/2008 10:15 AM SHEET METAL PRODUCTION WORKER documented in this encounter Results * MAMMO DIGITAL SCREEN BILAT (06/24/2008 10:15 AM SHEET METAL PRODUCTION WORKER) Anatomical Region Laterality Modality Breast Bilateral Other 06/24/2008 10:1 5 AM SHEET METAL PRODUCTION WORKER Narrative 06/27/2008 10:52 AM SHEET METAL PRODUCTION WORKER [address] [address] Admit Date: 06/24/2008 FRED MAY Sex: F Admit Prov: OSVALDO AGUIRRE Date: 1960 Primary Care Prov: OSVALDO AGUIRRE CMRN: [id number] Room: [facility] N: [id number] IMAGING SERVICES Ordering Prov: OSVALDO AGUIRRE Accession Number: [id number] Interpretation BILATERAL SCREENING DIGITAL MAMMOGRAMS WITH COMPUTER [...] Procedure Note Cullen Obrien MD - 06/27/2008 [facility] [address] [place], [place] [address] Admit Date: 06/24/2008 FRED MAY Sex: F Admit Prov: OSVALDO AGUIRRE Date: 1960 Primary Care Prov: OSVALDO AGUIRRE CMRN: [id number] Room: [facility] N: [id number] IMAGING SERVICES Ordering Prov: OSVALDO AGUIRRE Interpretation [...] mammogram documented in this encounter Care Teams Instructional Facilitator Relationship Specialty Start Date End Date Meera Gilliland ANP [address] [address] PCP - General Nurse Practitioner Adult Health 03/03/19 documented as of this encounter
--- OUTSIDE RECORDS SUMMARY | 2024-11-18 15:20 | XMS_ITS | Encounter Summary ---
Author Organization [facility] Address [address] [place] [address] Care Team Providers Care Inspector Electromechanical Name Role Phone Meera Gilliland Primary Care Provider [phone] Encounter Details Date Type Department Care Team (Late st Contact Info) Description 04/23/2007 Outpatient Historical [facility] Devorah Krause MD Other Screening Mammogram (Primary Dx) Social History Tobacco Use Types Packs/Day Years Used Date Smoking Tobacco: Never Assessed Comments Unknown Sex and Gender Information Value Date Recorded Sex Assigned at Female 07/26/2024 7:58 AM GAS DISTRIBUTION AND EMERGENCY CLERK Legal Sex Female 5:08 AM GAS DISTRIBUTION AND EMERGENCY CLERK Gender Identity Female 07/26/2024 7:58 AM GAS DISTRIBUTION AND EMERGENCY CLERK Sexual Orientation Straight 07/26/2024 7: 58 AM GAS DISTRIBUTION AND EMERGENCY CLERK documented as of this encounter Plan of Treatment Not on file documented as of this encounter Visit Diagnoses Diagnosis Other screening mammogram- Primary documented in this encounter Care Teams Inspector Electromechanical Relationship Specialty Start Date End Date Meera Gilliland ANP [address] [phone] PCP - General Nurse Practitioner Adult Health 03/03/19 documented as of this encounter
--- OUTSIDE RECORDS SUMMARY | 2024-11-18 15:20 | XMS_ITS | Clinical Summary ---
Author Organization [facility] Facility Address [address] [place] [address] Care Team Providers Care Jockey Agent Name Role Phone Meera Gilliland TYRONE Primary Care Provider [phone] Allergies Active Allergy Reactions Criticality Noted Date [...] Hypothyroidism 05/01/2021 Vitamin D deficiency 05/01/2021 Immunizations Immunization Administration Dates Next Due Influenza, Quadrivalent, With [...] 3:19 PM CDT Height 175.3 cm (5' 9) 01/06/2022 3:19 PM CDT Body Mass Index 32.64 01/06/2022 3:19 PM CDT Plan of Treatment Health Maintenance Due Date Last Done Comments Breast Cancer Screening 1961 Pneumococcal Vaccine: 50+ Years (1 of 2 - PCV) 1980 Colorectal Cancer Screening: Annual FOBT 2010 Colorectal Cancer Screening: Sigmoidoscopy 2010 Influenza Vaccine (Season Ended) 2025 03/22/2021, 03/25/2018 Colorectal Cancer Screening: Colonoscopy 12/21/2030 12/21/2020 Hepatitis B Vaccine Aged Out No longe r eligible based on patient's age to complete this topic Insurance ([id number]) Care Teams Jockey Agent Relationship Specialty Start Date End Date Meera Gilliland ANP [address] [id number] PCP - General Nurse Practitioner 05/01/21
--- OUTSIDE RECORDS SUMMARY | 2024-11-18 15:20 | XMS_ITS | Clinical Summary ---
Author Organization [facility] Address [address] [place] [address] Care Team Providers Care Donation Worker Name Role Phone Meera Gilliland NP Primary Care Provider [phone] Allergies Active Allergy Reactions Criticality Noted Date [...] 1 tablet (137 mcg total) by mouth risk management manager before breakfast Active B emvj-Y-yamhu hwef-[id number] 30-400-80 unit-mcg-mg tablet Take by mouth Active Active Problems Problem Noted Date Diagnosed Date Encounter for screening colonoscopy 10/31/2020 Overview (10/31/2020): Added automatically from request for surgery [id number] Injury of finger 02/09/2013 Surgical History Surgery [...] on file Legal Sex Female 12:05 PM BUMBOATER Gender Identity Female 07/23/2021 9:25 AM BUMBOATER Sexual Orientation Straight 09/01/2020 8: 10 PM BUMBOATER Obstetrics History Last Filed Vital Signs Vital Sign Reading Time Taken Comments Blood Pressure 129/80 12/21/2020 8:30 AM CDT Pulse 77 12/21/2020 8:30 AM CDT Temperature 36.9 C (98.5 F) 12/21/2020 8:30 AM CDT Respiratory Rate 20 12/21/2020 8:30 AM CDT Oxygen Saturation 99% 12/21/2020 8:30 AM CDT Inhaled Oxygen Concentration - - Weight 99.8 kg (220 lb) 05/19/2023 8:04 AM BUMBOATER Height 172.7 cm (5' 8) 05/19/2023 8:04 AM BUMBOATER Body Mass Index 33.45 05/19/2023 8:04 AM BUMBOATER Plan of Treatment Health Maintenance Due Date Last Done Comments Breast Cancer Screening-Mammogram 1961 Cervical Cancer Screening 1961 Depression Screening 1961 Hepatitis C Screening 1961 Hepatitis B Screening 11/03/1979 Regular Well Visit/Exam 18-64 11/03/1979 Pneumococcal vaccine <65 (1 of 2 - PCV) 1980 Influenza Vaccine (Season Ended) 2025 03/18/2023, 03/22/2021, 03/25/2018 Colon Cancer Screening-Colonoscopy 12/21/20302020 DTaP/Tdap/Td [...] Orr MD - 12/21/2020 7:26 AM CDT [facility] Patient Name: Nina May Procedure Date: 12/21/2020 7:26 AM Date of : 1960 Admit Type: Outpatient Age: 60 Gender: Female Attending MD: Sarthak Orr M.D. Room: [facility] ENDOSCOPY ROOM 2 Note Status: Finalized Patient [...] scope was passed under direct vision.The Colonoscope [id number] was introducedthrough the anus and advanced to [...] malignant neoplasm of colon CPT copyright 2019 [employer]. All rights reserved. The codes documented in this report are preliminary and upon tire fabric impregnating range tender reviewmay be revised to meet current compliance requirements. Recognized by the [employer] for promoting quality in endoscopy us Sarthak Orr MD ENDOSCOPY PROCEDURES Final Re sult from Last 3 Months or Most Recently Relevant to Health Maintenance Insurance [facility] H[facility]PP[facility] Address: [address] [facility] [address] [place] [address] Advance Directives For more information, please contact: [phone] * Full Code (Latest Code Status on File) Date Activated Date Inactivated Comments 12/21/2020 6:57 AM 12/21/2020 12:41 PM * Full Code Date Activated Date Inactivated Comments 12/21/2020 6:57 AM 12/21/2020 6:57 AM Care Teams Donation Worker Relationship Specialty Start Date End Date Meera Gilliland NP PCP - General 12/21/20
--- OUTSIDE RECORDS SUMMARY | 2024-11-18 15:20 | XMS_ITS | Clinical Summary ---
Author Organization [facility] Address [address] [place] [address] Care Team Providers Care Cook Fast Food Name Role Phone Talat Meera CAMARENA Primary Care Provider + Source Comments [facility],non-owned Affiliates and Associated Physician Practices is amultiple site organization consisting of ambulatory clinics and hospital sitesin [place], [place], [place] and [place]. This disclosure is being madepursuant to the Care Everywhere program and may not contain all information available regarding this patient. Last updated 18.[facility] Allergies Active Allergy Reactions Criticality Noted Date Comments Erythromycin Unknown 11/10/2017 Penicillins Urticaria Medium 08/23/2017 Medications * Be aware that medications may not be up to date on this document. Alwaysverify current medications with the patient. LEVOTHYROXINE SODIUM PO Active BuPROPion HCl (WELLBUTRIN PO) Acti ve Venlafaxine HCl (EFFEXOR XR PO) Acti ve nystatin (MYCOSTATIN) 455774 UNIT/GM cream Apply to affected area 2 times daily 30 g 1 8 Active miconazole (LOTRIMIN AF) 2 % powderIndication s:Cutaneous Candidiasis Apply to affected area 2 times daily Reasons: Skin Infection due to Jacquie Yeast 1 bottles 8 Active predniSONE (DELTASONE) 20 MG tabletIndication s:contact dermatitis Three tabs once daily days #1-7. Two tabs once daily days # 8-14. One tab once daily days #15-21. Reasons: contact dermatitis 42 tablet 8 Active hydrOXYzine hcl (ATARAX) 25 MG tabletIndication s:Poison sudha,Jacquie infection of flexural skin Take 1 tablet by mouth 4 times daily as needed for Itching 30 tablet 8 Active Social History Tobacco Use Types Packs/Day Years Used Date Smoking Tobacco: Never Smokeless Tobacco: Never Comments No Sex and Gender Information Value Date Recorded Sex Assigned at Not on file Legal Sex Female 12:33 PM SERVICES COORDINATOR Gender Identity Not on file Sexual Orientation Not on file Last Filed Vital Signs Vital Sign Reading Time Taken Comments Blood Pressure 120/64 11/10/2017 5:12 PM CDT Pulse 76 11/20/2017 7:43 AM CDT Temperature 36.9 C (98.4 F) 11/20/2017 7:43 AM CDT Respiratory Rate 20 11/20/2017 7:43 AM CDT Oxygen Saturation 96% 08/23/2017 2:41 PM SERVICES COORDINATOR Inhaled Oxygen Concentration - - Weight 99.8 kg (220 lb) 11/10/2017 5:12 PM CDT Height 175.3 cm (5' 9) 11/10/2017 5:12 PM CDT Body Mass Index [...] 11/03/2011 SCREENING FOR DIABETES 08/23/2017 COVID-19 VACCINE (1 - 2023-2 5 season) 2024 DEPRESSION SCREENING [...] age to complete this topic Care Teams Cook Fast Food Relationship Specialty Start Date End Date Meera Gilliland APRN-JOSE [address] [address] PCP - General Nurse Practitioner 08/23/17
--- OUTSIDE RECORDS SUMMARY | 2024-11-18 15:20 | XMS_ITS | Clinical Summary ---
Author Organization [facility] [employer] [place] Address [address] [address] Care Team Providers Care Junior Web Designer Name Role Phone Meera Gilliland Primary Care Provider [phone] Allergies Active Allergy Reactions Criticality Noted Date [...] Encounters Date Type Department Care Team Description 11/15/2024 External Device Data [facility] ABSTRACTION Provider, Abstract 11/09/2024 External Device Data [facility] Provider, Abstract 11/08/2024 External Device Data [facility] Provider, Abstract 08/29/2024 External Device Data [facility] Provider, Abstract 08/23/2024 External Device Data [facility] Provider, Abstract 08/19/2024 Results Follow-Up [facility] at Work [employer] [address] [facility] [place] [address] Rhona Jha, MONI LIPID PANEL, COMPREHENSIVE METABOLIC PANEL, CBC WITH DIFFERENTIAL, TSH from Last 3 Months Immunizations Immunization Administration [...] Sex Assigned at Female 07/26/2024 7:58 AM PANEL EDGE PAINTER Legal Sex Female 5:08 AM PANEL EDGE PAINTER Gender Identity Female 07/26/2024 7:58 AM PANEL EDGE PAINTER Sexual Orientation Straight 07/26/2024 7: 58 AM PANEL EDGE PAINTER Last Filed Vital Signs Vital Sign Reading Time Taken Comments Blood Pressure 130/80 08/18/2024 10:24 AM PANEL EDGE PAINTER Pulse 101 08/18/2024 10:24 AM PANEL EDGE PAINTER Temperature 36.9 C (98.4 F) 08/18/2024 10:24 AM PANEL EDGE PAINTER Respiratory Rate 16 08/18/2024 10:24 AM PANEL EDGE PAINTER Oxygen Saturation 97% 08/18/2024 10:24 AM PANEL EDGE PAINTER Inhaled Oxygen Concentration - - Weight 95.3 kg (210 lb) 08/18/2024 10:24 AM PANEL EDGE PAINTER Height 172.7 cm (5' 8) 08/18/2024 10:24 AM PANEL EDGE PAINTER Body Mass Index 31.93 08/18/2024 10:24 AM PANEL EDGE PAINTER Plan of Treatment Health Maintenance Due Date Last Done Comments Pre-Diabetes and Diabetes Screening 1960 HPV/Cotest (21-29) 1982 HPV/Cotest (30-65) 11/03/1991 FIT-DNA Q 3 [...] Name Priority Date/Time Associated Diagnosis Comments COLONOSCOPY REPORT Routine 12/21/2020 MAMMO SCREEN BILAT W OR WO CAD Routine 06/24/2008 10:15 AM PANEL EDGE PAINTER from Last 3 Months or Most Recently Relevant to Health Maintenance Results * COLONOSCOPY REPORT (12/21/2020) us Abstract Provider GI PROCEDURE ORDERABLES Final Result [facility] [id number] [address] [place] [address] * MAMMO DIGITAL SCREEN BILAT (06/24/2008 10:15 AM PANEL EDGE PAINTER) Anatomical Region Laterality Modality Breast Bilateral Other 06/24/2008 10:1 5 AM PANEL EDGE PAINTER Narrative 06/27/2008 10:52 AM PANEL EDGE PAINTER [facility] [address] [place], [place] [address] Admit Date: 06/24/2008 FRED MAY Sex: F Admit Prov: DEVORAH AGUIRRE Date: 1960 Primary Care Prov: DEVORAH AGUIRRE CMRN: [id number] Room: MADDIMatt N: [id number] IMAGING SERVICES Ordering Prov: DEVORAH AGUIRRE Accession Number: [id number] Interpretation BILATERAL SCREENING DIGITAL MAMMOGRAMS WITH COMPUTER [...] Procedure Note Cullen Obrien MD - 06/27/2008 [facility] [address] [place], [place] [address] Admit Date: 06/24/2008 FRED MAY Sex: F Admit Prov: DEVORAH AGUIRRE Date: 1960 Primary Care Prov: DEVORAH AGUIRRE CMRN: [id number] Room: MADDI-Matt N: [id number] IMAGING SERVICES Ordering Prov: DEVORAH AGUIRRE Interpretation BILATERAL SCREENING DIGITAL MAMMOGRAMS WITH [...] OBRIEN 06/27/2008 10:52 Transcribed: 06/27/2008 07:54 DKT Devorah Aguirre MD MAMMO ORDERABLES Final Resul t from Last 3 Months or Most Recently Relevant to Health Maintenance Insurance ALLEGIANCE OPEN ACCESS ALLEGIANCE OPEN ACCESS * Guarantor: [employer] Account Type Relation to Patient Date of Phone Billing Address Corporate Employer ATTN: [employer] [address] [address] Care Teams Junior Web Designer Relationship Specialty Start Date End Date Meera Gilliland ANP [address] [address] PCP - General Nurse Practitioner Adult Health 03/03/19
--- OUTSIDE RECORDS SUMMARY | 2024-11-18 15:20 | XMS_ITS | Referral Summary ---
Author Organization [facility] Address [address] [place] [address] Care Team Providers Care Substance Abuse Prevention Coordinator Name Role Phone Meera Gilliland NP Primary Care Provider [phone] Allergies Active Allergy Reactions Criticality Noted Date [...] 1 tablet (137 mcg total) by mouth mat linker before breakfast Active B nfdu-A-abbjk ofkn-lyvd01-uvi 30-400-80 unit-mcg-mg tablet Take by mouth Active Active Problems Problem Noted Date Diagnosed Date Encounter for screening colonoscopy 10/31/2020 Overview (10/31/2020): Added automatically from request for surgery [id number] Injury of finger 02/09/2013 Social History Tobacco Use Types Packs/Day Years Used Date Smoking Tobacco: Never Tobacco Cessation:Counseling Given: Not Answered Personal Safety Answer Date Recorded Getting School Help Needed Not on file 02/28 /2024 Comments Unknown Sex and Gender Information Value Date Recorded Sex Assigned at Not on file Legal Sex Female 12:05 PM NUCLEAR MEDICINE PET CT TECHNOLOGIST Gender Identity Female 07/23/2021 9:25 AM NUCLEAR MEDICINE PET CT TECHNOLOGIST Sexual Orientation Straight 09/01/2020 8: 10 [address]AR MEDICINE PET CT TECHNOLOGIST Last Filed Vital Signs Vital Sign Reading Time Taken Comments Blood Pressure 129/80 12/21/2020 8:30 AM CDT Pulse 77 12/21/2020 8:30 AM CDT Temperature 36.9 C (98.5 F) 12/21/2020 8:30 AM CDT Respiratory Rate 20 12/21/2020 8:30 AM CDT Oxygen Saturation 99% 12/21/2020 8:30 AM CDT Inhaled Oxygen Concentration - - Weight 99.8 kg (220 lb) 05/19/2023 8:04 AM NUCLEAR MEDICINE PET CT TECHNOLOGIST Height 172.7 cm (5' 8) 05/19/2023 8:04 AM NUCLEAR MEDICINE PET CT TECHNOLOGIST Body Mass Index 33.45 05/19/2023 8:04 AM NUCLEAR MEDICINE PET CT TECHNOLOGIST Plan of Treatment Not on file Procedures [...] Female Attending MD: Sarthak Orr M.D. Room: [facility] ENDOSCOPY ROOM 2 Note Status: Finalized [...] scope was passed under direct vision.The Colonoscope [id number] was introducedthrough the anus and advanced to [...] malignant neoplasm of colon CPT copyright 2019 [employer]. All rights reserved. The codes documented in this report are preliminary and upon machine design checker reviewmay be revised to meet current compliance requirements. Recognized by the [place] for promoting quality in endoscopy Sarthak Orr MD ENDOSCOPY PROCEDURES Final Re sult from Last 3 Months or Most Recently Relevant to Health Maintenance Insurance [facility] Address: [facility] [address] [place] [address] MARY KATEAYDEE ALLEGIANCE Advance Directives For more information, please contact: [phone] * Full Code (Latest Code Status on File) Date Activated Date Inactivated Comments 12/21/2020 6:57 AM 12/21/2020 12:41 PM * Full Code Date Activated Date Inactivated Comments 12/21/2020 6:57 AM 12/21/2020 6:57 AM Care Teams Substance Abuse Prevention Coordinator Relationship Specialty Start Date End Date Meera Gilliland NP PCP - General 12/21/20
== END 2024-11-18 15:17 | disposition home or self-care (01) ==
LOC: ANHIMG 15:17
PROVIDERS: PCP Nurse Practitioner Adult Health; Visit Provider Nurse Practitioner Adult Health
DX: Z12.31 Encounter for screening mammogram for malignant neoplasm of breast (principal)
CPT/HCPCS: 77063; 77067